=== PATIENT | male | born 1960 | race Caucasian/White ===

== ENCOUNTER 2016-06-12 12:53 | Emergency (ER) | payer MEDICAID ==
[~2016-06-12] VITALS: Ht 180.3 cm; Wt 76.1 kg
[2016-06-12 17:00] VITALS: BP 161/103
== END 2016-06-12 17:50 | disposition home or self-care (01) ==
LOC: ED 16:24
DX: R51 Headache (principal); F10.229 Alcohol dependence with intoxication, unspecified; F17.200 Nicotine dependence, unspecified, uncomplicated
CPT/HCPCS: 70450; 70486; 99284